=== PATIENT | female | born 1960 | race Caucasian/White ===

== ENCOUNTER 2024-03-05 13:53 | Emergency (ER) | payer OTHER, SELFPAY ==
[2024-03-05 13:59] VITALS: BP 86/59; PULSE 96; RESP 18; TEMP 36.1; O2SAT 95; BMI 32.5
[2024-03-05] MEDS: 0.9 % SODIUM CHLORIDE 500 ML 500 ML IV (14:31)
[2024-03-05] MEDS: ONDANSETRON 2 MG/ML inj 4 MG IVP (14:31)
[2024-03-05 14:39] LABS: Lactate Sepsis w/Reflex* 1.4 mmol/L (0.5-1.9)
[2024-03-05 14:40] VITALS: O2SAT 98
[2024-03-05 14:40] LABS: Basophils Percent Auto 0.2 % (0.0-3.0); Eosinophils Percent Auto 1.2 % (0.0-7.0); Hematocrit 40.3 % (33.0-51.0); Hemoglobin* 12.8 gm/dL (12.0-16.0); Immature Granulocytes Pct Auto 0.3 %; Lymphocytes Percent Auto 4.8 % (20-44); Mean Corpuscular HGB Conc 32 gm/dL (32-36); Mean Corpuscular Hemoglobin 28 pg (26-34); Mean Corpuscular Volume 88 fL (80-100); Monocytes Percent Auto 7.1 % (0.0-11.0); Neutrophils Percent Auto 86.4 % (42.0-72.0); Platelet Count* 216 K/uL (140-440); RDW Coefficient of Variation % 13.9 % (11.5-15.5); Red Blood Count 4.58 m/uL (4.00-5.20); White Blood Count* 14.71 K/uL (4.50-11.00)
[2024-03-05 14:41] LABS: Slide Review Reflex No
[2024-03-05 14:55] LABS: Albumin* 4.5 g/dL (3.3-5.0)
[2024-03-05 14:56] LABS: Chloride* 103 mmol/L (96-114); Potassium* 4.3 mmol/L (3.6-5.1); Sodium* 135 mmol/L (135-149)
[2024-03-05 14:58] LABS: Bilirubin Direct* 0.2 mg/dL (0.0-0.5); Bilirubin Total* 1.2 mg/dL (0.1-1.5)
[2024-03-05 14:59] LABS: Alanine Aminotransferase* 29 U/L (4-35); Alkaline Phosphatase* 72 U/L (40-150); Anion Gap 9 mEq/L (7-15); Aspartate Amino Transferase* 33 U/L (12-35); Carbon Dioxide* 23 mmol/L (20-32); Creatinine* 1.6 mg/dL (0.5-1.5); Estimated Glomerular Filt Rate 36 ml/min; Total Protein* 7.6 g/dL (6.0-8.3)
[2024-03-05 15:00] LABS: Blood Urea Nitrogen* 15 mg/dL (7-30); Calcium* 9.6 mg/dL (8.4-10.6); Glucose* 226 mg/dL (60-115)
[2024-03-05 15:02] LABS: C Reactive Protein* < 0.5 mg/dL (0.5-1.0)
[2024-03-05 15:13] VITALS: BP 118/68; PULSE 100; O2SAT 98
--- NOTE | 2024-03-05 15:16 | ED.GENADULT ---
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 She says that she went to the bathroom, had for 5 episodes of vomiting a couple episodes of nonbloody diarrhea. She denies any chest pain, back pain, abdominal pain. She did feel somewhat lightheaded and 911 was called. She vomited once in the ambulance but has not had any further vomiting. No ill contacts, no travel. She has a history of diabetes, denies any cardiac history. She did give blood yesterday but does that fairly regularly and has never had significant problems aside from just feeling a little bit worn out which she does feel today. She notes that her hemoglobin yesterday was 13.4. She denies any black tarry stools or other obvious loss of blood since yesterday. She has not had any fevers, cough, shortness of breath, or other complaints. She is feeling improved relative to how she was feeling earlier. Did not have any medications or fluids in the ambulance. She does not smoke or drink. Allergies to Ceclor. Related Data Home Medications ?Medication ?Instructions ?Recorded ?Confirmed Lantuss-Forte 03/05/24 Novolog FlexPen U-100 Insulin 03/05/24 lisinopril 20 mg tablet 20 mg PO DAILY 03/05/24 03/05/24 rosuvastatin 20 mg tablet (Crestor) 20 mg PO DAILY 03/05/24 03/05/24 semaglutide 0.25 mg or 0.5 mg (2 0.5 mg subcut QWEEK 03/05/24 03/05/24 mg/3 mL) subcutaneous pen injector (Ozempic) Allergies Allergy/AdvReac Type Severity Reaction Status Date / Time cefaclor [From Ceclor] Allergy Verified 03/05/24 14:07 Review of Systems Status of ROS: Reports: 10 or more systems reviewed and unremarkable except as noted in History and below PFSH PFSH Social History Smoking Status: Never smoker Do you use any of these nicotine containing products: None Second hand tobacco smoke exposure: No How often do you have a drink containing alcohol: never AUDIT-C Alcohol total score: 0 Non-prescribed substance use: denies use service: No Exam Narrative: Exam Narrative: Vital signs as noted above. In general, an alert, well-appearing patient. Head: Normocephalic, atraumatic. Eyes: Pupils are equal reactive. Extraocular movements are full. Conjunctivae are normal. ENT: Mucous membranes are moist. Throat is normal. Neck: Supple without lymphadenopathy. Heart: Regular rate and rhythm. No murmur or rub. Lungs: Clear bilaterally. No increased work of breathing, crackles or wheezes. Abdomen: Soft and nontender. No organomegaly. Extremities: Well perfused. No edema. No calf tenderness. Pulses intact. Neurologic: Patient is alert and oriented to person and place. Speech is fluent. Face is symmetric. Moves all extremities equally. Affect: Normal. Skin: Warm and dry. Well perfused. Const: Vital Signs, click to edit/add: Vital Signs - 24 hr 03/05/24 13:59 03/05/24 14:40 03/05/24 15:13 Temperature 97.0 F L Pulse Rate 100 Pulse Rate [Pulse Oximeter] 96 Respiratory Rate 18 Blood Pressure 118/68 Blood Pressure [Le ft Upper Arm] 86/59 L Pulse Oximetry 95 98 98 Oxygen Delivery Me thod Room Air Course Course ED Course: Initial blood pressure was somewhat low at 80 6/59, it was 93/60 4 when I was in the room with her. We did place an IV here, she had an EKG which by my review shows a normal sinus rhythm, ventricular rate of 94. Relatively small voltages but no acute ST segment changes, T-waves are unremarkable. Diagnostic considerations would include gastroenteritis, dehydration, anemia, acute coronary syndrome, infection plus or minus sepsis, bowel obstruction, cholecystitis, biliary colic, pancreatitis among others. Her abdomen is benign she does not have abdominal pain so I think these are less likely. EKG is reassuring, troponin was 0. Blood pressures improved after 500 mL of normal saline, 118/68. Her white count is mildly elevated at 14.7,possibly demargination, no clear source of infection identified on history exam aside from possible enteritis or colitis. Metabolic panel is normal aside from a creatinine of 1.6, baseline unknown. BUN is 15. Blood sugar elevated at 226 with known diabetes. Lactate is normal at 1.4, LFTs are normal. CRP is less than 0.5. I did do a 2 hour troponin which is also 0. Blood pressures have been stable, she is feeling improved, no further nausea or vomiting, no further diarrhea, continues to deny abdominal or chest pain, difficulty breathing, or other symptoms. She is still slightly tachycardic, she was able to tolerate p.o. fluids without further emesis. I think it is reasonable to let her go home and continue oral hydration. I prescribed some Zofran. If she has continued vomiting, develops abdominal pain, fevers, bloody stools persistent vomiting etcetera she should come back for re-evaluation. Otherwise, primary care follow-up if not improving over the next day or 2. She is comfortable with that plan. Vital Signs Vital signs: Initial Vital Signs Temperature 97.0 F L 03/05/24 13:59 Temperature Source Temporal Artery Scan 03/05/24 13:59 Pulse Rate 96 03/05/24 13:59 Pulse Rhythm Regular 03/05/24 13:59 Respiratory Rate 18 03/05/24 13:59 Blood Pressure 86/59 L 03/05/24 13:59 Blood Pressure Mean 68 L 03/05/24 13:59 Blood Pressure Position Supine 03/05/24 13:59 Pulse Oximetry 95 03/05/24 13:59 Oxygen Delivery Method Room Air 03/05/24 13:59 Vital Signs Temperature 97.0 F L 03/05/24 13:59 Pulse Rate 96 03/05/24 13:59 Respiratory Rate 18 03/05/24 13:59 Blood Pressure 86/59 L 03/05/24 13:59 Pulse Oximetry 95 03/05/24 13:59 Oxygen Delivery Method Room Air 03/05/24 13:59 Temperature 97.0 F L 03/05/24 13:59 Pulse Rate 100 03/05/24 15:13 Respiratory Rate 18 03/05/24 13:59 Blood Pressure 118/68 03/05/24 15:13 Pulse Oximetry 98 03/05/24 15:13 Oxygen Delivery Method Room Air 03/05/24 13:59 Medications Administered Medications: Discontinued Medications Generic Name Dose Route Start Last Admin Trade Name Freq PRN Reason Stop Dose Admin Sodium Chloride 500 mls @ 500 mls/hr 03/05/24 14:18 03/05/24 15:25 0.9 % Sodium Chloride 500 Ml IV 03/05/24 15:17 Infused .Q1H ONE Infusion Ondansetron HCl 4 mg 03/05/24 14:18 03/05/24 14:31 Ondansetron 2 Mg/Ml Inj IVP 03/05/24 14:19 4 mg ONCE ONE Administration Medical Decision Making Lab Data Labs: Lab Results 03/05/24 Range/Units 14:30 WBC 14.71 H (4.50-11.00) K/uL RBC 4.58 (4.00-5.20) m/uL Hgb 12.8 (12.0-16.0) gm/dL Hct 40.3 (33.0-51.0) % MCV 88 (80-100) fL MCH 28 (26-34) pg MCHC 32 (32-36) gm/dL RDW Coeff of Vianca 13.9 (11.5-15.5) % Plt Count 216 (140-440) K/uL Neut % (Auto) 86.4 H (42.0-72.0) % Lymph % (Auto) 4.8 L (20-44) % [place] % (Auto) 7.1 (0.0-11.0) % Eos % (Auto) 1.2 (0.0-7.0) % Baso % (Auto) 0.2 (0.0-3.0) % Neut # (Auto) 12.70 H (1.7-7.0) K/uL Lymph # (Auto) 0.70 L (0.90-2.90) K/uL [place] # (Auto) 1.00 H (0.00-0.90) K/UL Eos # (Auto) 0.20 (0.00-0.50) K/uL Baso # (Auto) 0.00 (0.00-0.30) K/uL Abs Immat Gran (auto) 0.00 (0.00-0.30) K/uL Imm/Tot Granulo (auto) 0.3 % Sodium 135 (135-149) mmol/L Potassium 4.3 (3.6-5.1) mmol/L Chloride 103 (96-114) mmol/L Carbon Dioxide 23 (20-32) mmol/L Anion Gap 9 (7-15) mEq/L BUN 15 (7-30) mg/dL Creatinine 1.6 H (0.5-1.5) mg/dL Estimated Creat Clear 26.80 Estimated GFR 36 ml/min Glucose 226 H (60-115) mg/dL Lactate 1.4 (0.5-1.9) mmol/L Calcium 9.6 (8.4-10.6) mg/dL Total Bilirubin 1.2 (0.1-1.5) mg/dL Direct Bilirubin 0.2 (0.0-0.5) mg/dL AST 33 (12-35) U/L ALT 29 (4-35) U/L Alkaline Phosphatase 72 (40-150) U/L C-Reactive Protein < 0.5 L (0.5-1.0) mg/dL Total Protein 7.6 (6.0-8.3) g/dL Albumin 4.5 (3.3-5.0) g/dL POC Troponin I 0.00 L (0.01-0.04) ng/ml Discharge Plan Discharge Clinical Impression: Vomiting and diarrhea Patient Disposition: Home, Self-Care Condition: Improved Instructions: Acute Nausea and Vomiting (ED) Additional Instructions: Zofran if needed for further nausea or vomiting. Clear liquids today, work on hydration, advance diet as symptoms allow. If you have uncontrolled vomiting, abdominal pain, bloody stools, fevers, chest pain, fainting or other worsening, return to the emergency department at any time. Otherwise, see her primary doctor if not improving over the next day or 2. Prescriptions: No Action lisinopril 20 mg tablet 20 mg PO DAILY Novolog FlexPen U-100 Insulin Lantuss-Forte Patient Comments: 64 units at night Ozempic 0.25 mg or 0.5 mg (2 mg/3 mL) pen injector 0.5 mg subcut QWEEK rosuvastatin [Crestor] 20 mg tablet 20 mg PO DAILY Follow Up/Referrals: Provider,Not a Local [Primary Care Provider] - Stand Alone Forms: MyHealth Info Instructions
--- OUTSIDE RECORDS SUMMARY | 2024-03-05 16:16 | XMS_ITS ---
Author Organization [facility] S Address [address] [facility] [address] [place], [place] [phone] Care Team Providers Care Analyzer Sales Name Role Phone Kyung Spivey Primary Care Provider REASON FOR VISIT FreeStyle Abdi 3 Plus Medications Medication SIG (Take, Route, Frequency, Duration) Notes Start Date End Date Status FreeStyle Abdi 3 Plus Sensor - change every 14 days. E11.22 02/07/2024 Active Social History Sex Assigned At : Social History Observation Description Sex Assigned At Female Encounters Encounter Location Date Provider Diagnosis [facility] [address] [id number] 02/07/2024 Kyung Spivey Plan Of Treatment Medication Medication Name Sig Start Date Stop Date Notes FreeStyle Abdi 3 Plus Sensor - change every 14 days. 01/14 Next Appt Details Provider Name:Kyung Spivey , 05/03/2024 07:30:00 AM, [address], [address], [place], [place], [phone], Progress Notes * Lashell SAMSON MDOB: [birth year] (63 yo F)Acc No.[id number]:02/07/2024 Patient:?Lashell SAMSON :1960???Age:63 Y???Sex:Female Address:[address] [place] [address] [place], [address] * Refills? Start FreeStyle Abdi 3 Plus Sensor Miscellaneous, -, 2, change every 14 days., Refills=5 * true * Date:? Generated for Nafisa verduzco/Herson/Ravindra on:?03/05/2024 04:16 PM CDT
--- OUTSIDE RECORDS SUMMARY | 2024-03-05 16:16 | XMS_ITS ---
Author Organization [facility] S Address [address] [facility] [address] [place], [place] [phone] Care Team Providers Care Warrant Clerk Name Role Phone Kyung Spivey Primary Care Provider [phone] REASON FOR VISIT Free Style Abdi 3 Plus Medications Medication SIG (Take, Route, Frequency, Duration) Notes Start Date End Date Status FreeStyle Abdi 3 Plus Sensor - change every 14 days. E11.22 02/07/2024 Active Social History Sex Assigned At : Social History Observation Description Sex Assigned At Female Encounters Encounter Location Date Provider Diagnosis [facility] [address] [id number] 02/08/2024 Kyung Spivey Plan Of Treatment Medication Medication Name Sig Start Date Stop Date Notes FreeStyle Abdi 3 Plus Sensor - change every 14 days. 01/14 Next Appt Details Provider Name:Kyung Spivey , 05/03/2024 07:30:00 AM, [address], [address], [place], [place], [phone], Progress Notes * Lashell SAMSON MDOB: [birth year] (63 yo F)Acc No.[id number]:02/08/2024 Patient:?Lashell SAMSON :1960???Age:63 Y???Sex:Female Address:[address] [place] [address] [place], [address] * Refills? Refill FreeStyle Abdi 3 Plus Sensor Miscellaneous, -, 2, change every 14 days., Refills=5 * true * Date:? Generated for Nafisa verduzco/Herson/Ravindra on:?03/05/2024 04:16 PM CDT
--- OUTSIDE RECORDS SUMMARY | 2024-03-05 16:17 | XMS_ITS ---
Author Organization [facility] S Address [address] [facility] [address] [place], [place] [phone] Care Team Providers Care Mens Locker Room Attendant Name Role Phone Gerinell Dinolarry Primary Care Provider REASON FOR VISIT Lantus Solostar or Insulin Glargine Solostarr Medications Medication SIG (Take, Route, Frequency, Duration) Notes Start Date End Date Status Lantus SoloStar 100 UNIT/ML as directed 64 units Subcutaneous once a day for 90 days Active Social History Sex Assigned At : Social History Observation Description Sex Assigned At Female Encounters Encounter Location Date Provider Diagnosis [facility] [address] [place], [place] [phone] 01/31/2024 Kyung Spivey 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 This will replace Basaglar starting in 2023. Lantus SoloStar 100 UNIT/ML as directed 64 units Subcutaneous once a day for 90 days Next Appt Details Provider Name:Kyung Spivey , 05/03/2024 07:30:00 AM, [address], [place], [place], [phone], Progress Notes * Lashell SAMSON MDOB: [birth year] (63 yo F)Acc No.[id number]:01/31/2024 Patient:?MICHELLERulaLashell Anisa :1960???Age:63 Y???Sex:Female Address:[address] [place] [address], [phone] * Refills? Refill Lantus SoloStar Solution Pen-injector, 100 UNIT/ML, 60 Milliliter, as directed 64 units Subcutaneous once a day, 90 days, Refills=1 Stop Insulin Glargine Solostar Solution Pen-injector, 100 UNIT/ML, Subcutaneous, 64 UNITS, once a day * true * Date:? Generated for Nafisa verduzco/Herson/eTransmitting on:?03/05/2024 04:16 PM CDT
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
--- NOTE | 2024-03-05 17:19 | ED.NURSE ---
tolerated PO well. would like to go home
[2024-03-14 09:03] LABS: Troponin, Point-of-Care* < 0.01 ng/ml (0.01-0.04)
== END 2024-03-05 17:25 | disposition home or self-care (01) ==
PROVIDERS: Emergency Provider Emergency Medicine
DX: R11.10 Vomiting, unspecified (principal); R19.7 Diarrhea, unspecified
CPT/HCPCS: 36415; 80048; 80076; 83605; 84484; 85025; 86140; 93005; 94761; 96374; 99284; J2405; J7030